=== PATIENT | male | born 1990 | race Caucasian/White ===

== ENCOUNTER → 2021-07-09 | Outpatient (CLI) | payer OTHER ==
--- NOTE | 2021-07-09 12:09 | XR ---
Right hand HISTORY: Trauma and pain, S67.21XA 3 views of the right Bone mineralization, joint spaces and alignment are maintained. Soft tissue swelling is noted to the third digit. Along the second digit lateral aspect at the level the proximal phalanx within the soft tissues of linear foreign body is questioned measuring only 3 mm, only seen on one view IMPRESSION: No fracture or dislocation. Question foreign body as described. Soft tissue swelling thir d digit.
== END | disposition home or self-care (01) ==
LOC: RADXRMAIN 11:31
PROVIDERS: ATTEND Emergency Medicine
DX: S67.21XA Crushing injury of right hand, initial encounter (principal); M79.641 Pain in right hand; M79.89 Other specified soft tissue disorders; X58.XXXA Exposure to other specified factors, initial encounter

== ENCOUNTER → 2022-06-19 | Outpatient (CLI) | payer BC ==
[2022-06-19 19:43] LABS: Clam IgE <0.10 kU/L; Codfish IgE <0.10 kU/L; Egg White IgE 0.11 kU/L; Peanut IgE 0.32 kU/L; Scallop IgE <0.10 kU/L; Shrimp IgE <0.10 kU/L; Soybean IgE 0.13 kU/L; Walnut IgE (Food) <0.10 kU/L
== END | disposition home or self-care (01) ==
LOC: LABWHC1 10:48
PROVIDERS: ATTEND Otolaryngology
DX: L50.0 Allergic urticaria (principal)
CPT/HCPCS: 36415; 82785; 86001; 86003